=== PATIENT | male | born 1960 | race Caucasian/White ===

== ENCOUNTER 2017-05-13 10:53 | Inpatient (IN) | payer BC ==
[~2017-05-13] VITALS: Ht 177.8 cm; Wt 144.3 kg
[2017-05-13] MEDS ORDERED: ASPIRIN 81 MG TABLET CHEW PO ONE (11:30)
[2017-05-13] MEDS ORDERED: SODIUM CHLORIDE FLUSH 10ML SYR IVF ONE (11:30)
[2017-05-13 12:09] LABS: HEMATOCRIT 43.3 % (39.2-51.8); HEMOGLOBIN 14.4 g/dL (13.7-18.0); WHITE BLOOD COUNT 11.4 x10^3/uL (3.4-10)
[2017-05-13 12:20] LABS: ASPARTATE AMINO TRANSFERASE 18 U/L (15-37); BLOOD UREA NITROGEN 12 mg/dL (7-18)
[2017-05-13 12:26] LABS: IS PT STATUS REG ER OR PRE ER? YES
[2017-05-13] MEDS ORDERED: ASPIRIN 81 MG TABLET CHEW ONE (12:31)
[2017-05-13] MEDS ORDERED: MORPHINE SULFATE 4 MG/ML, 1ML ONE ×3 (12:31→15:45)
[2017-05-13] MEDS: MORPHINE SULFATE 4 MG/ML, 1ML IVPush PRN ×4 (12:37→20:42)
[2017-05-13 12:43] LABS: DIFF TOTAL CELLS COUNTED 100 CELL DIFF
[2017-05-13 12:45] LABS: VERIFY COUNTS? YES
[2017-05-13 12:49] LABS: SMUDGE CELLS 1+
[2017-05-13] MEDS ORDERED: METF500T4 PO (13:32)
[2017-05-13] MEDS ORDERED: TRAZ100T15 PO (13:32)
[2017-05-13] MEDS ORDERED: ONDANSETRON 2MG/ML, 2ML IVPush PRN (14:00)
[2017-05-13] MEDS ORDERED: ACETAMINOPHEN 325 MG TABLET PO PRN (14:00)
[2017-05-13] MEDS ORDERED: SODIUM CHLORIDE FLUSH 10ML SYR IVF PRN (14:00)
[2017-05-13] MEDS ORDERED: NITROGLYCERIN 0.4 MG BOTTLE (25 TABS) SL PRN (14:00)
[2017-05-13] MEDS: SODIUM CHLORIDE 0.9% 1,000 ML IV SCH (16:33)
[2017-05-13] MEDS: INSULIN ASPART 100 UNITS/ML, PEN SQ-INSULIN SCH ×2 (18:19→20:43)
[2017-05-13 19:50] VITALS: BP 129/84
[2017-05-13] MEDS: metFORMIN 500 MG TABLET PO SCH (20:42)
[2017-05-13] MEDS ORDERED: TRAZODONE 100MG TABLET PO SCH (21:00)
[2017-05-14 01:40] VITALS: BP 125/81
[2017-05-14] MEDS: SODIUM CHLORIDE 0.9% 1,000 ML IV SCH (03:57)
[2017-05-14] MEDS: MORPHINE SULFATE 4 MG/ML, 1ML IVPush PRN (03:58)
[2017-05-14] MEDS ORDERED: PNEUMOCOCCAL 23 VACCINE IM-VACC ONE (04:00)
[2017-05-14 04:58] LABS: BLOOD UREA NITROGEN 13 mg/dL (7-18)
[2017-05-14 05:05] LABS: IS PT STATUS REG ER OR PRE ER? NO
[2017-05-14] MEDS: metFORMIN 500 MG TABLET PO SCH ×2 (07:53→20:37)
[2017-05-14 07:55] VITALS: BP 138/81
[2017-05-14] MEDS: INSULIN ASPART 100 UNITS/ML, PEN SQ-INSULIN SCH ×4 (08:04→20:37)
[2017-05-14] MEDS ORDERED: REGADENOSON 0.4 MG/5 ML SYRINGE ONE (08:46)
[2017-05-14] MEDS: OXYcodone IR 5MG TABLET PO PRN ×4 (11:06→23:02)
[2017-05-14] MEDS ORDERED: POTASSIUM CHLORIDE 20 MEQ TAB.ER.PRT PO ONE (12:00)
[2017-05-14] MEDS: FUROSEMIDE 40 MG/4 ML IV SCH (12:24)
[2017-05-14 12:38] VITALS: BP 122/73
[2017-05-14 18:48] VITALS: BP 146/90
[2017-05-14] MEDS ORDERED: NITROGLYCERIN 0.4 MG BOTTLE (25 TABS) SL PRN (19:00)
[2017-05-14] MEDS ORDERED: ACETAMINOPHEN 325 MG TABLET PO PRN (19:00)
[2017-05-14] MEDS ORDERED: ONDANSETRON 2MG/ML, 2ML IVPush PRN (19:00)
[2017-05-14] MEDS ORDERED: TRAZODONE 100MG TABLET PO SCH (21:00)
[2017-05-15 00:58] VITALS: BP 121/85
[2017-05-15] MEDS: OXYcodone IR 5MG TABLET PO PRN (05:10)
[2017-05-15 07:32] VITALS: BP 121/77
[2017-05-15] MEDS ORDERED: POTASSIUM CHLORIDE 20 MEQ TAB.ER.PRT PO SCH ×2 (08:00)
[2017-05-15] MEDS: metFORMIN 500 MG TABLET PO SCH (08:29)
[2017-05-15] MEDS: INSULIN ASPART 100 UNITS/ML, PEN SQ-INSULIN SCH (08:30)
[2017-05-15] MEDS: FUROSEMIDE 40 MG/4 ML IV SCH (08:30)
[2017-05-15] MEDS ORDERED: GLYB5TAB3 PO (09:17)
[2017-05-15] MEDS ORDERED: POTA20TA6 PO (09:17)
[2017-05-15] MEDS ORDERED: OXYC5TAB3 PO (09:17)
[2017-05-15] MEDS ORDERED: LOVA20TA2 PO (09:17)
[2017-05-15] MEDS ORDERED: METF500T PO (09:17)
[2017-05-15] MEDS ORDERED: NITR0.4T SL (09:17)
[2017-05-15] MEDS ORDERED: FURO40TA6 PO (09:17)
== END 2017-05-15 11:01 | disposition home or self-care (01) | DRG 292 ==
LOC: ED 11:30 → EDIP 13:49 → SUATTDRO 13:58 → 4WST 16:05 → DCLOUNGE 05-15 10:48
DX: I11.0 Hypertensive heart disease with heart failure (principal); Z68.42 Body mass index [BMI] 45.0-49.9, adult; I27.2 Other secondary pulmonary hypertension; E11.65 Type 2 diabetes mellitus with hyperglycemia; E83.42 Hypomagnesemia; I50.32 Chronic diastolic (congestive) heart failure; E66.01 Morbid (severe) obesity due to excess calories; E78.5 Hyperlipidemia, unspecified; G47.33 Obstructive sleep apnea (adult) (pediatric); G89.29 Other chronic pain; Z79.82 Long term (current) use of aspirin; Z83.3 Family history of diabetes mellitus
CPT/HCPCS: 36415; 71010; 78452; 80048; 80053; 80061; 81003; 82962; 83036; 83735; 83880; 84100; 84443; 84484; 85025; 85651; 90732; 93005; 93017; 93306; 93970; 94660; J1815; J1940; J2785; A9502; C9898; J7030